=== PATIENT | male | born 1995 | race American Indian/Alaskan Native ===

== ENCOUNTER 2022-05-11 20:58 | Emergency (ER) | payer MEDICAID ==
[2022-05-11] MEDS ORDERED: Sodium Chloride 0.9% 10 ML Syringe FLUSH PRN (21:07)
[2022-05-11 21:20] VITALS: BP 116/81; PULSE 80
[2022-05-11 21:45] LABS: ANION GAP 14.8 mEq/L (7-13); CHLORIDE,CL 110 mmol/L (98-107); SODIUM,NA 147 mmol/L (136-145)
[2022-05-11 21:47] LABS: ESTIMATED GFR 125 mL/min (>=60)
[2022-05-11] MEDS ORDERED: NS + KCl 20mEq/L 1,000 ML IV SCH (22:00)
[2022-05-12] MEDS ORDERED: Potassium Chloride 10 MEQ Tab.ER PO ONE (07:41)
== END 2022-05-12 08:00 | disposition home or self-care (01) ==
LOC: DL.ED 20:58
DX: E87.6 Hypokalemia (principal); F10.920 Alcohol use, unspecified with intoxication, uncomplicated; E66.9 Obesity, unspecified; Y90.8 Blood alcohol level of 240 mg/100 ml or more; Z91.018 Allergy to other foods; Z79.899 Other long term (current) drug therapy
CPT/HCPCS: 36415; 70450; 72125; 80053; 80307; 85025; 96365; 96366; 99285; A9270; J3480; J3490